=== PATIENT | female | born 1960 | race Hispanic/Latino ===

== ENCOUNTER → 2023-12-20 | Day surgery (SDC) | payer BC, OTHER ==
[~2023-12-20] MED LIST: GLUCAGON FOR INJ 1 MG VIAL ONE; HYOSCYAMINE SULFATE 0.5 MG/ML INJ ONE; LEVOTHYROXINE50 MCG PO; LIDOCAINE HCL 2% LOCAL INJ 5 ML SDV VIAL INJ ONE; PROPOFOL IV EMULSION 10 MG/ML 20 ML VIAL ONE; TERBINAFINE HC250 MG PO; VIT D PO; VIT D3 PO
[2023-12-20] MEDS: LACTATED RINGER'S 1,000 ML ONE (10:26)
[2023-12-20 12:28] VITALS: TEMP 98.4
[2023-12-20 12:50] VITALS: BP 113/86; PULSE 61; RESP 18; O2SAT 99
== END | disposition home or self-care (01) ==
LOC: OR 09:52
PROVIDERS: ATTEND Internal Medicine Gastroenterology
DX: R19.5 Other fecal abnormalities (principal); D12.0 Benign neoplasm of cecum; D12.5 Benign neoplasm of sigmoid colon; K57.30 Diverticulosis of large intestine without perforation or abscess without bleeding; K59.09 Other constipation; K64.8 Other hemorrhoids; Z71.3 Dietary counseling and surveillance; E03.9 Hypothyroidism, unspecified; Z71.89 Other specified counseling; Z01.810 Encounter for preprocedural cardiovascular examination; Z79.899 Other long term (current) drug therapy; Z80.0 Family history of malignant neoplasm of digestive organs
CPT/HCPCS: 45385; 93005; J1610; J1980; J2001; J2704; J7121; 45378